=== PATIENT | female | born 1985 | race Two or more races ===

== ENCOUNTER 2018-07-10 14:56 | Emergency (ER) | payer SELFPAY ==
[2018-07-10] MEDS ORDERED: ONDANSETRON 4 MG TAB.RAPDIS PO ONE (15:39)
[2018-07-10] MEDS: RINGERS SOLUTION,LACTATED 1,000 ML IV PRN ×2 (16:07→17:04)
[2018-07-10] MEDS ORDERED: METOCLOPRAMIDE HCL INJ/PF 10 MG/2 ML SDV IV ONE (16:22)
[2018-07-10 16:23] LABS: ABSOLUTE LYMPHOCYTES (AUTO) 1.5 10^3/uL (0.5-4.7); ABSOLUTE MONOCYTES (AUTO) 0.3 10^3/uL (0.1-1.4); BASOPHILS % (AUTO) 0.2 % (0-2); HEMATOCRIT 39.4 % (36.0-47.0); HEMOGLOBIN 13.6 g/dL (12.0-15.5); LYMPHOCYTES % (AUTO) 8.7 % (13-45); MEAN CORPUSCULAR HEMOGLOBIN 30.5 pg (27.0-33.4); MEAN CORPUSCULAR HGB CONC 34.6 g/dL (32.0-36.0); MEAN CORPUSCULAR VOLUME 88 fl (80-97); PLATELET COUNT 289 10^3/uL (150-450); RED BLOOD COUNT 4.47 10^6/uL (3.72-5.28); RED CELL DISTRIBUTION WIDTH 13.3 % (11.5-14.0); SEGMENTED NEUTROPHILS % (AUTO) 89.1 % (42-78); TOTAL CELLS COUNTED % (AUTO) 100 %; WHITE BLOOD COUNT 16.8 10^3/uL (4.0-10.5)
[2018-07-10] MEDS ORDERED: ONDANSETRON HCL INJ/PF 4 MG/2 ML SDV IV ONE (16:23)
[2018-07-10 16:53] LABS: ALANINE AMINOTRANSFERASE 24 U/L (9-52); ALKALINE PHOSPHATASE 56 U/L (38-126); ANION GAP 18 (5-19); ASPARTATE AMINO TRANSFERASE 31 U/L (14-36); BILIRUBIN,DIRECT 0.2 mg/dL (0.0-0.4); BILIRUBIN,TOTAL 0.5 mg/dL (0.2-1.3); BLOOD UREA NITROGEN 15 mg/dL (7-20); CALCIUM 9.5 mg/dL (8.4-10.2); CARBON DIOXIDE 25 mmol/L (22-30); CHLORIDE 103 mmol/L (98-107); GLUCOSE 116 mg/dL (75-110); LIPASE 38.4 U/L (23-300); SODIUM 145.6 mmol/L (137-145); TOTAL PROTEIN 8.4 g/dL (6.3-8.2)
[2018-07-10 17:04] LABS: APPEARANCE,URINE SLIGHTLY-CLOUDY; BILIRUBIN,URINE NEGATIVE (NEGATIVE); COLOR,URINE YELLOW; GLUCOSE, URINE NEGATIVE (NEGATIVE); KETONES,URINE NEGATIVE (NEGATIVE); LEUKOCYTE ESTERASE,URINE NEGATIVE (NEGATIVE); NITRITE,URINE NEGATIVE (NEGATIVE); PROTEIN,URINE NEGATIVE (NEGATIVE); UROBILINOGEN,URINE NEGATIVE mg/dL (<2.0)
--- NOTE | 2018-07-10 18:02 | ER Document Report ---
ED General - General Chief Complaint: Nausea/Vomiting/Diarrhea Stated Complaint: VOMITING Time Seen by Provider: 07/10/18 15:39 TRAVEL OUTSIDE OF THE [place] IN LAST 30 DAYS: No - HPI Patient complains to provider of: Nausea vomiting diarrhea Notes: Patient coming for nausea vomiting diarrhea started earlier this time. Patient denies any excessive marijuana use or alcohol use however triage note states the boyfriend stated upon check-in patient was drinking alcoholic beverages not in excess however did not have anything to eat night prior episodes of this have happened before. Patient denies any recent antibiotics denies any trauma denies any sick contacts. Patient otherwise is actively vomiting in triage area upon my evaluation. - Related Data Allergies/Adverse Reactions: No Known Allergies Allergy (Verified 07/10/18 15:38) Past Medical History - Social History Smoking Status: Current Every Day Smoker Frequency of alcohol use: None Drug Abuse: Marijuana Family History: Reviewed & Not Pertinent Patient has suicidal ideation: No Patient has homicidal ideation: No Renal/ Medical History: Denies: Hx Peritoneal Dialysis Past Surgical History: Reports: Hx Tubal Ligation Review of Systems - Review of Systems Constitutional: No symptoms reported EENT: No symptoms reported Cardiovascular: No symptoms reported Respiratory: No symptoms reported Gastrointestinal: Diarrhea, Nausea, Vomiting Genitourinary: No symptoms reported Female Genitourinary: No symptoms reported Musculoskeletal: No symptoms reported Skin: No symptoms reported Hematologic/Lymphatic: No symptoms reported Neurological/Psychological: No symptoms reported -: Yes All other systems reviewed and negative Physical Exam - Vital signs Vitals: Temp Pulse Resp BP Pulse Ox 98.1 F 57 L 16 133/88 H 95 07/10/18 15:03 07/10/18 15:03 07/10/18 15:03 07/10/18 15:03 07/10/18 15:03 Interpretation: Normal - General General appearance: Appears well, Alert - HEENT Head: Normocephalic, Atraumatic Eyes: Normal Pupils: PERRL - Respiratory Respiratory status: No respiratory distress Chest status: Nontender Breath sounds: Normal Chest palpation: Normal - Cardiovascular Rhythm: Regular Heart sounds: Normal auscultation Murmur: No - Abdominal Inspection: Normal Distension: No distension Bowel sounds: Normal Tenderness: Nontender Organomegaly: No organomegaly - Back Back: Normal, Nontender - Extremities General upper extremity: Normal inspection, Nontender, Normal color, Normal ROM , Normal temperature General lower extremity: Normal inspection, Nontender, Normal color, Normal ROM , Normal temperature, Normal weight bearing. No: Bear's sign - Neurological Neuro grossly intact: Yes Cognition: Normal Orientation: AAOx4 Ricki Coma Scale Eye Opening: Spontaneous [place] Coma Scale Verbal: Oriented [place]i Coma Scale Motor: Obeys Commands [place] Coma Scale Total: 15 Speech: Normal Motor strength normal: LUE, RUE, LLE, RLE Sensory: Normal - Psychological Associated symptoms: Normal affect, Normal mood - Skin Skin Temperature: Warm Skin Moisture: Dry Skin Color: Normal Course - Re-evaluation Re-evalutation: 07/10/18 21:23 The patient presents with nausea by diarrhea without signs of peritonitis or other life-threatening or serious etiology. The patient appears stable for discharge and has been instructed to return immediately if the symptoms worsen in any way, or in 8-12hr if not improved for re-evaluation. The patient has been instructed to return if the symptoms worsen or change in any way. Patient resting comfortably upon my evaluation patient patient states feeling better will discharge home with Reglan - Vital Signs Vital signs: Temp Pulse Resp BP Pulse Ox 97.9 F 57 L 18 105/58 L 98 07/10/18 18:20 07/10/18 18:20 07/10/18 18:20 07/10/18 18:20 07/10/18 18:20 - Laboratory Result Diagrams: 07/10/18 16:03 07/10/18 16:03 Laboratory results interpreted by me: 07/10/18 07/10/18 07/10/18 16:03 16:03 16:03 WBC 16.8 H Seg Neutrophils % 89.1 H Lymphocytes % 8.7 L Monocytes % 2.0 L Absolute Neutrophils 15.0 H Sodium 145.6 H Glucose 116 H Total Protein 8.4 H Urine Blood LARGE H Discharge - Discharge Clinical Impression: Nausea vomiting and diarrhea Condition: Good Disposition: HOME, SELF-CARE Instructions: Gastroenteritis (adult) ([facility]) Additional Instructions: Laboratory values not reveal any critical pathology at this time will likely of viral or foodborne illness. Please make sure you drink plenty water and would recommend clear liquid diet for the next 12-24 hours and advance as tolerated. Return to ER symptoms worsen follow-up with your primary care physician. Prescriptions: Metoclopramide HCl [Reglan] 5 mg PO Q6 #30 tablet Forms: Return to Work Referrals: LOCALMD,NO [NO LOCAL MD] - Follow up in 3-5 days
[2018-07-10 18:27] VITALS: BP 105/58
== END 2018-07-10 18:21 | disposition home or self-care (01) ==
LOC: ER 14:56
DX: R11.2 Nausea with vomiting, unspecified (principal); R19.7 Diarrhea, unspecified; F17.200 Nicotine dependence, unspecified, uncomplicated; Z98.51 Tubal ligation status; R40.2412 Glasgow coma scale score 13-15, at arrival to emergency department
CPT/HCPCS: 99284; 36415; 83690; 84703; 85025; 80053; 81001; S0119; J2765; J2405; J7120